=== PATIENT | female | born 1975 | race African-American/Black ===

== ENCOUNTER → 2016-08-19 | Emergency (ER) | payer SELFPAY ==
[~2016-08-19] VITALS: Ht 167.6 cm; Wt 81.6 kg
[~2016-08-19] MED LIST: BENZ100C18 PO; BIOT800T PO; CYCL10TA9 PO; DOXY100C2 PO; FERR27TA; HYDR-3714 PO; NAPR-243 PO; NAPR550T PO; POTA-51 PO; PRED20TA PO; ZOLP5TAB PO
== END | disposition home or self-care (01) ==
LOC: EDUNIT# 21:56 → ER 21:57
DX: R19.7 Diarrhea, unspecified (principal); Z53.21 Procedure and treatment not carried out due to patient leaving prior to being seen by health care provider
CPT/HCPCS: 99281

== ENCOUNTER 2016-08-20 18:02 | Emergency (ER) | payer OTHER ==
[~2016-08-20] VITALS: Ht 167.6 cm; Wt 81.6 kg
[~2016-08-20 18:02] MED LIST changes: -POTA-51 PO
--- NOTE | 2016-08-20 19:09 | ED GI ---
General Chief Complaint: Abdominal/GI Problems Stated Complaint: CRAMPS/DIARRHEA Source of Information: Patient Exam Limitations: No Limitations History of Present Illness Time Seen By Provider: 19:08 Initial Comments To ER with epigastric abdominal cramping and diarrhea for the past 3 days. No fevers or chills. No other pains. She states she's had these symptoms before and was found to be hypokalemic and required IV potassium replacement and transfusion of packed red cells about 4 years ago. Severity/Quality: Moderate, Cramping Location: Epigastric Radiation: No Radiation Activities at Onset: None Associated Symptoms: Nausea/Vomiting Allergies and Home Medications Allergies Coded Allergies: No Known Drug Allergies (Unverified , 01/20/11) Home Medications Zolpidem Tartrate 5 Mg Tablet, 5 MG PO, (Reported) Review of Systems Constitutional: see HPI, No chills, No fever EENTM: No Symptoms Reported Respiratory: See HPI Cardiovascular: See HPI Gastrointestinal: See HPI, Abdominal Pain, Denies Constipated, Diarrhea, Nausea , Denies Vomiting Genitourinary: No Symptoms Reported Musculoskeletal: no symptoms reported Skin: no symptoms reported Past Txqbvrb-Dtyxbf-Idybfv Hx Patient Social History 2nd Hand Smoke Exposure: Yes Recent Foreign Travel: No Contact w/Someone Who Travel: No Immunizations Up To Date Date of Influenza Vaccine: Feb 07, 2013 Surgeries HX Surgeries: Yes (DNC) Surgeries: Section Respiratory Hx Respiratory Disorders: No Cardiovascular Hx Cardiac Disorders: No Neurological Hx Neurological Disorders: No Reproductive System Female 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 Genitourinary Hx Genitourinary Disorders: No Gastrointestinal Hx Gastrointestinal Disorders: No Musculoskeletal Hx Musculoskeletal Disorders: No Endocrine Hx Endocrine Disorders: No HEENT HX ENT Disorders: No HEENT Disorders: Epiglottis Cancer Hx Cancer: No Psychosocial Hx Psychiatric Problems: No Integumentary HX Skin/Integumentary Disorder: No Blood Transfusions Hx Blood Disorders: No Family Medical History Significant Family History: No Pertinent Family Hx Physical Exam Vital Signs VS - Last 72 Hours, by Label 08/20/16 18:38 Temp 99.0 Pulse 86 Resp 18 B/P (MAP) 143/98 Pulse Ox 98 Capillary Refill : General Appearance: WD/WN, no apparent distress HEENT: PERRL/EOMI, normal ENT inspection Neck: non-tender, full range of motion Respiratory: no respiratory distress, no accessory muscle use Gastrointestinal: normal bowel sounds, non tender, soft Extremities: normal range of motion, non-tender Neurologic/Psychiatric: alert, normal mood/affect, oriented x 3 Skin: normal color, warm/dry Progress/Results/Core Measures Results/Orders Lab Results Laboratory Tests Test 08/20/16 18:45 Range/Units White Blood Count 10.7 4.3-11.0 10^3/uL Red Blood Count 4.64 4.35-5.85 10^6/uL Hemoglobin 13.2 11.5-16.0 G/DL Hematocrit 36 35-52 % Mean Corpuscular Volume 78 L 80-99 FL Mean Corpuscular Hemoglobin 28 25-34 PG Mean Corpuscular Hemoglobin Concent 36 32-36 G/DL Red Cell Distribution Width 13.8 10.0-14.5 % Platelet Count 289 130-400 10^3/uL Mean Platelet Volume 10.2 7.4-10.4 FL Neutrophils (%) (Auto) 67 42-75 % Lymphocytes (%) (Auto) 21 12-44 % Monocytes (%) (Auto) 10 0-12 % Eosinophils (%) (Auto) 1 0-10 % Basophils (%) (Auto) 1 0-10 % Neutrophils # (Auto) 7.2 1.8-7.8 X 10^3 Lymphocytes # (Auto) 2.3 1.0-4.0 X 10^3 Monocytes # (Auto) 1.0 0.0-1.0 X 10^3 Eosinophils # (Auto) 0.1 0.0-0.3 10^3/uL Basophils # (Auto) 0.1 0.0-0.1 10^3/uL Erythrocyte Sedimentation Rate 17 0-20 MM/HR Sodium Level 139 135-145 MMOL/L Potassium Level 3.1 L 3.6-5.0 MMOL/L Chloride Level 108 H 98-107 MMOL/L Carbon Dioxide Level 22 21-32 MMOL/L Anion Gap 9 5-14 MMOL/L Blood Urea Nitrogen 10 7-18 MG/DL Creatinine 0.72 0.60-1.30 MG/DL Estimat Glomerular Filtration Rate > 60 BUN/Creatinine Ratio 14 Glucose Level 91 70-105 MG/DL Calcium Level 9.1 8.5-10.1 MG/DL Total Bilirubin 0.3 0.1-1.0 MG/DL Aspartate Amino Transf (AST/SGOT) 10 5-34 U/L Alanine Aminotransferase (ALT/SGPT) 9 0-55 U/L Alkaline Phosphatase 66 40-136 U/L C-Reactive Protein High Sensitivity 0.67 H 0.00-0.50 MG/DL Total Protein 7.8 6.4-8.2 G/DL Albumin 4.2 3.2-4.5 G/DL My Orders Orders - CHERYL GONG APRN Ua Culture If Indicated (08/20/16 19:07) Cbc With Automated Diff (08/20/16 19:07) Erythrocyte Sedimentation Rate (08/20/16 19:07) Comprehensive Metabolic Panel (08/20/16 19:07) Hs C Reactive Protein (08/20/16 19:07) Saline Lock/Iv-Start (08/20/16 19:07) Urine Bedside (08/20/16 19:07) Potassium Chloride (Tablet) (Klor Con Ta (08/20/16 19:45) Vital Signs/I&O Vital Sign - Last 12Hours 08/20/16 18:38 Temp 99.0 Pulse 86 Resp 18 B/P (MAP) 143/98 Pulse Ox 98 Departure Impression Impression: Primary Impression: Abdominal cramping Additional Impression: Diarrhea Disposition: 01 HOME, SELF-CARE Condition: Stable Departure-Patient Inst. Decision time for Depature: 19:54 Referrals: [facility] (PCP/Family) Primary Care Physician Patient Instructions: Diarrhea and Traveler's Diarrhea, Adult (DC) Add. Discharge Instructions: 1. Bduc-pnl-joilvje Imodium as directed 2. Plenty of fluids such as Gatorade 3. Medication as directed 4. Follow-up with regular doctor later this week for recheck All discharge instructions reviewed with patient and/or family. Voiced understanding. Scripts Potassium Chloride (Potassium Chloride) 20 Meq Tablet.er 20 MEQ PO DAILY, #3 TAB Prov: CHERYL GONG APRN 08/20/16 CHERYL GONG APRN August 20, 2016 19:09
[2016-08-20 19:21] LABS: BASOPHILS # (AUTO) 0.1 10^3/uL (0.0-0.1); BASOPHILS % (AUTO) 1 % (0-10); EOSINOPHILS # (AUTO) 0.1 10^3/uL (0.0-0.3); EOSINOPHILS % (AUTO) 1 % (0-10); LYMPHOCYTES # (AUTO) 2.3 X 10^3 (1.0-4.0); LYMPHOCYTES % (AUTO) 21 % (12-44); MEAN CORPUSCULAR HEMOGLOBIN 28 PG (25-34); MEAN CORPUSCULAR HGB CONC 36 G/DL (32-36); MEAN CORPUSCULAR VOLUME 78 FL (80-99); MEAN PLATELET VOLUME 10.2 FL (7.4-10.4); MONOCYTES % (AUTO) 10 % (0-12); NEUTROPHILS # (AUTO) 7.2 X 10^3 (1.8-7.8); NEUTROPHILS % (AUTO) 67 % (42-75); PLATELET COUNT 289 10^3/uL (130-400); RED BLOOD COUNT 4.64 10^6/uL (4.35-5.85); RED CELL DISTRIBUTION WIDTH 13.8 % (10.0-14.5); WHITE BLOOD COUNT 10.7 10^3/uL (4.3-11.0)
[2016-08-20 19:26] LABS: ALANINE AMINOTRANSFERASE 9 U/L (0-55); ALBUMIN 4.2 G/DL (3.2-4.5); ANION GAP 9 MMOL/L (5-14); ASPARTATE AMINO TRANSFERASE 10 U/L (5-34); BILIRUBIN,TOTAL 0.3 MG/DL (0.1-1.0); BLOOD UREA NITROGEN 10 MG/DL (7-18); BUN/CREATININE RATIO 14; CALCIUM 9.1 MG/DL (8.5-10.1); CARBON DIOXIDE 22 MMOL/L (21-32); CHLORIDE 108 MMOL/L (98-107); CREATININE SERUM 0.72 MG/DL (0.60-1.30); GFR ESTIMATED > 60; GLUCOSE 91 MG/DL (70-105); POTASSIUM 3.1 MMOL/L (3.6-5.0); SODIUM 139 MMOL/L (135-145); TOTAL PROTEIN 7.8 G/DL (6.4-8.2); hs C REACTIVE PROTEIN 0.67 MG/DL (0.00-0.50)
[2016-08-20] MEDS ORDERED: KCL 10 MEQ TAB (MICRO K) PO ONE (19:45)
[2016-08-20 19:49] LABS: ERYTHROCYTE SEDIMENTATION RATE 17 MM/HR (0-20)
[2016-08-20] MEDS ORDERED: POTA-51 PO (19:59)
[2016-08-20 20:44] VITALS: BP 120/83
== END 2016-08-20 20:44 | disposition home or self-care (01) ==
LOC: EDUNIT# 18:02 → ER 18:03
DX: R10.30 Lower abdominal pain, unspecified (principal); R19.7 Diarrhea, unspecified
CPT/HCPCS: 36415; 80053; 85025; 85652; 86141

== ENCOUNTER 2016-12-17 21:16 | Emergency (ER) | payer OTHER ==
[~2016-12-17 21:16] MED LIST changes: +POTA-51 PO
--- OUTSIDE RECORDS SUMMARY | 2016-12-17 21:21 | XMS REPORT ---
Author Author KAI CELAYA [facility] Address [address] [place] [address] Care Team Providers Care Identification Officer Name Role Phone KAI CELAYA Unavailable PROBLEMS Type Condition ICD9-CM Code [id number] Code Onset Dates Condition Status SNOMED Code Problem Irregular menstrual bleeding N92.6 Active 59403150 Problem Hair loss L65.9 Active 054552940 Problem Primary insomnia F51.01 Active 6633705 Problem Episodic tension-type headache, not intractable G44.219 Active 388706890 ALLERGIES Substance Reaction Event Type Date Status N.K.D.A. Unknown Non Drug Allergy Mar, Unknown SOCIAL HISTORY No smoking Hx information available PLAN OF CARE Activity Details Follow Up 3 Months or pending lab Reason:Insomnia VITAL SIGNS Height 66 in 2016-04-23 Weight 177.3 lbs 2016-04-23 Temperature 98.4 degrees Fahrenheit 2016-04-23 Heart Rate 84 bpm 2016-04-23 Respiratory Rate 20 2016-04-23 BMI 28.61 kg/m2 2016-04-23 Blood pressure systolic 124 mmHg 2016-04-23 Blood pressure diastolic 78 mmHg 2016-04-23 MEDICATIONS Medication Instructions Dosage Frequency Start Date End Date Duration Status Depo-Provera 150 MG/ML Intramuscular every 3 months 150mg IM Feb, Jan, 12 months Active Ambien 5 mg Orally Once a day 1 tablet at bedtime 24h Mar, 28 days Active RESULTS Name Result Date Reference Range ESTRADIOL 2016-04-23 Estradiol <5.0 TSH 2016-04-23 TSH 0.776 0.450-4.500 CBC 2016-04-23 WBC 10.0 3.4-10.8 RBC 5.17 3.77-5.28 Hemoglobin 13.7 11.1-15.9 Hematocrit 40.8 34.0-46.6 MCV 79 79-97 MCH 26.5 26.6-33.0 MCHC 33.6 31.5-35.7 RDW 16.3 12.3-15.4 Platelets 343 150-379 Neutrophils 72 Lymphs 20 Monocytes 5 Eos 2 Basos 1 Neutrophils (Absolute) 7.3 1.4-7.0 Lymphs (Absolute) 2.0 0.7-3.1 Monocytes(Absolute) 0.5 0.1-0.9 Eos (Absolute) 0.2 0.0-0.4 Baso (Absolute) 0.1 0.0-0.2 Immature Granulocytes 0 Immature Grans (Abs) 0.0 0.0-0.1 VITAMIN D, 25-H 2016-04-23 Vitamin D, 25-Hydroxy 13.7 30.0-100.0 PROCEDURES Procedure Date Ordered Related Diagnosis Body Site ASSAY THYROID STIM HORMONE Apr 23, 2016 ASSAY OF ESTRADIOL Apr 23, 2016 COMPLETE CBC W/AUTO DIFF WBC Apr 23, 2016 ASSAY OF VITAMIN D Apr 23, 2016 VENIPUNCT, ROUTINE* Apr 23, 2016 Office Visit, Est Pt., Level 4 Apr 23, 2016 IMMUNIZATIONS No Known Immunizations
--- OUTSIDE RECORDS SUMMARY | 2016-12-17 21:21 | XMS REPORT ---
Author Author KAI CELAYA [facility] Address [address] [place] [address] Care Team Providers Care Lumber Sticker Name Role Phone KAI CELAYA Unavailable PROBLEMS Type Condition ICD9-CM Code [id number] Code Onset Dates Condition Status SNOMED Code Problem Irregular menstrual bleeding N92.6 Active 29839030 Problem Hair loss L65.9 Active 159900626 Problem Primary insomnia F51.01 Active 1291255 Problem Episodic tension-type headache, not intractable G44.219 Active 289614754 ALLERGIES No Known Allergies SOCIAL HISTORY No smoking Hx information available PLAN OF CARE VITAL SIGNS MEDICATIONS Medication Instructions Dosage Frequency Start Date End Date Duration Status Cholecalciferol 5000 UNIT Orally once weekly for 12 weeks then once completed take 4,000 units daily OTC 1 tablet Mar, Active RESULTS No Results PROCEDURES No Known procedures IMMUNIZATIONS No Known Immunizations
--- OUTSIDE RECORDS SUMMARY | 2016-12-17 21:21 | XMS REPORT ---
Author Author JENNIFER Harper [facility] Address Unknown Care Team Providers Care Professional Architect Name Role Phone JENNIFER Harper Unavailable PROBLEMS Type Condition ICD9-CM Code [id number] Code Onset Dates Condition Status SNOMED Code Problem Irregular menstrual bleeding N92.6 Active 19380972 Problem Hair loss L65.9 Active 363468010 Problem Primary insomnia F51.01 Active 4012119 Problem Episodic tension-type headache, not intractable G44.219 Active 303337090 ALLERGIES Substance Reaction Event Type Date Status N.K.D.A. Unknown Non Drug Allergy Feb, Unknown SOCIAL HISTORY No smoking Hx information available PLAN OF CARE Activity Details Follow Up prn Reason:filling VITAL SIGNS Height 66 in 2016-03-11 Blood pressure systolic 147 mmHg 2016-03-11 Blood pressure diastolic 86 mmHg 2016-03-11 MEDICATIONS Medication Instructions Dosage Frequency Start Date End Date Duration Status Amitriptyline HCl 50mg Orally Once a day at hs 1/2 tablet daily x 7 days then 1 tablet 14 Nov, 2015 Active Depo-Provera 150 MG/ML Intramuscular every 3 months 150mg IM Feb, Jan, 12 months Active RESULTS No Results PROCEDURES Procedure Date Ordered Related Diagnosis Body Site LTD ORAL EVALUATION - PROBLEM FOCUS Mar 11, 2016 INTRAORL-PERIAPICAL 1 FILM [id number] Mar 11, 2016 IMMUNIZATIONS No Known Immunizations
== END 2016-12-17 21:51 | disposition left against medical advice (07) ==
LOC: EDUNIT# 21:16 → ER 21:17
DX: S80.252A Superficial foreign body, left knee, initial encounter (principal); W25.XXXA Contact with sharp glass, initial encounter

== ENCOUNTER 2017-12-09 20:18 | Emergency (ER) | payer SELFPAY ==
[~2017-12-09] VITALS: Ht 167.6 cm; Wt 79.4 kg
[~2017-12-09 20:18] MED LIST changes: +NAPR-1070 PO; -NAPR550T PO
[2017-12-09] MEDS ORDERED: NITROGLYCERIN 0.4 MG SL TABS BTL 25'S SL PRN (20:30)
[2017-12-09] MEDS ORDERED: ASPIRIN 81 MG CHEW (CHILDREN'S ASA) PO ONE (20:30)
[2017-12-09 20:39] LABS: BASOPHILS % (AUTO) 0 % (0-10); EOSINOPHILS # (AUTO) 0.2 10^3/uL (0.0-0.3); EOSINOPHILS % (AUTO) 1 % (0-10); HEMATOCRIT 37 % (35-52); HEMOGLOBIN 13.6 G/DL (11.5-16.0); LYMPHOCYTES # (AUTO) 3.5 X 10^3 (1.0-4.0); LYMPHOCYTES % (AUTO) 25 % (12-44); MEAN CORPUSCULAR HEMOGLOBIN 28 PG (25-34); MEAN CORPUSCULAR HGB CONC 37 G/DL (32-36); MEAN CORPUSCULAR VOLUME 74 FL (80-99); MEAN PLATELET VOLUME 9.9 FL (7.4-10.4); MONOCYTES # (AUTO) 0.9 X 10^3 (0.0-1.0); MONOCYTES % (AUTO) 7 % (0-12); NEUTROPHILS # (AUTO) 9.2 X 10^3 (1.8-7.8); NEUTROPHILS % (AUTO) 66 % (42-75); PLATELET COUNT 355 10^3/uL (130-400); RED BLOOD COUNT 4.95 10^6/uL (4.35-5.85); RED CELL DISTRIBUTION WIDTH 16.2 % (10.0-14.5); WHITE BLOOD COUNT 13.9 10^3/uL (4.3-11.0)
[2017-12-09 20:51] LABS: PROTHROMBIN TIME PATIENT 13.1 SEC (12.2-14.7)
[2017-12-09 21:03] LABS: ALANINE AMINOTRANSFERASE 13 U/L (0-55); ALBUMIN 4.5 GM/DL (3.2-4.5); ALKALINE PHOSPHATASE 60 U/L (40-136); AMYLASE 66 U/L (25-125); BILIRUBIN,TOTAL 0.3 MG/DL (0.1-1.0); BUN/CREATININE RATIO 10; CALCIUM 9.4 MG/DL (8.5-10.1); CARBON DIOXIDE 20 MMOL/L (21-32); CHLORIDE 106 MMOL/L (98-107); CREATINE KINASE 46 U/L (29-168); GFR ESTIMATED > 60; GLUCOSE 87 MG/DL (70-105); LIPASE 16 U/L (8-78); MAGNESIUM 2.1 MG/DL (1.8-2.4); POTASSIUM 3.2 MMOL/L (3.6-5.0); SODIUM 137 MMOL/L (135-145); TOTAL PROTEIN 8.1 GM/DL (6.4-8.2)
[2017-12-09 21:11] LABS: CREATINE KINASE MB 0.6 NG/ML (<6.6)
--- NOTE | 2017-12-09 21:19 | Diagnostic Imaging Report ---
EXAMINATION: Chest radiograph, portable AP view. DATE: December 09, 2017 at 2039 hours. INDICATION: 42-year-old female, chest pain. COMPARISON: February 07, 2013. FINDINGS: Heart size and mediastinal contours are unremarkable. There is no identified pneumothorax. There is no large pleural effusion. There is no identified focal airspace consolidation. IMPRESSION: No identified acute cardiopulmonary abnormality. Dictated by: Dictated on workstation # [id number]
--- NOTE | 2017-12-09 21:28 | ED Chest Pain ---
General Chief Complaint: Chest Pain Stated Complaint: CHEST PAIN Nursing Triage Note: PT PRESENTS TO ER WITH COMPLAINT OF CHEST PAIN FOR THE LAST TWO DATS. STATES SHE THOUGHT IT COULD BE GAS. STATES IT GOES ACROSS HER CHEST AND UNDER HER BREAST. Nursing Sepsis Screen: No Definite Risk Source: patient History of Present Illness Date Seen by Provider: Dec 09, 2017 Time Seen by Provider: 20:25 Initial Comments PT ARRIVES VIA POV FROM HOME PT STATES "I KEEP GETTING THESE CHEST PAINS" STATES "LAST NIGHT IT WAS REALLY BAD" STATES SHE STARTED HAVING PAINS ON FRIDAY NIGHT STATES PAIN COMES AND GOES AND IS NOT PRESENT NOW PT STATES TODAY THAT PAIN STARTED AT 10 AM, LASTED 20 MINUTES, RETURNED AT 1300 AND LASTED 20 MINUTES, AND RETURNED AT 1900 AND LASTED 10-15 MINUTES PAIN IS UNDER BOTH BREASTS AND ON TOP OF BOTH BREASTS AND IS VERY TENDER NOTHING WORSENS PAIN, BUT IS IMPROVED WITH POSITION CHANGES + SHORTNESS OF BREATH LAST PM WITH THE PAIN AND THEN FELT WEAK AFTERWARDS HAD SWEATS LAST PM, NOT TODAY NO NAUSEA/VOMITING NO SWELLING IN LEGS/ FEET OR PAIN IN CALVES. NO RECENT PROLONGED TRAVEL OR SITTING NO COUGH NO FEVER NO RECENT ILLNESS NO BACK PAIN NO HISTORY OF SIMILAR LMP 2 MONTHS AGO--PERIODS IRREGULAR. S/P BTL PCP: KATELYN, PARAM CELAYA Allergies and Home Medications Allergies Coded Allergies: No Known Drug Allergies (Unverified , 01/20/11) Home Medications Potassium Chloride 20 Meq Tablet.er, 20 MEQ PO DAILY Prescribed by: CHERYL GONG on 08/20/161958 Patient Home Medication List Home Medication List Reviewed: Yes Review of Systems Review of Systems Constitutional: see HPI, diaphoresis; No dizziness, No fever, No malaise, No weakness EENTM: No Symptoms Reported Respiratory: See HPI; Denies Orthopnea; Shortness of Air Cardiovascular: See HPI, Chest Pain; Denies Edema, Denies Irregular Heart Rate , Denies Lightheadedness, Denies Palpitations, Denies Syncope Gastrointestinal: No Symptoms Reported; Denies Abdominal Pain, Denies Nausea, Denies Vomiting Genitourinary: No Symptoms Reported Musculoskeletal: see HPI; No back pain, No neck pain Skin: no symptoms reported Psychiatric/Neurological: No Symptoms Reported Endocrine: No Symptoms Reported Past Pymitfr-Kqfitk-Sdvuhz Hx Patient Social History Alcohol Use: Occasionally Uses Recreational Drug Use: No Smoking Status: Never a Smoker 2nd Hand Smoke Exposure: Yes Recent Foreign Travel: No Contact w/Someone Who Travel: No Recent Infectious Disease Expo: No Immunizations Up To Date Date of Influenza Vaccine: Feb 07, 2013 Past Medical History Surgeries: Yes ( X 3; D&C) Section, Tubal Ligation Respiratory: No Cardiac: No Neurological: No Female Reproductive Disorders: Menstrual Problems (IRREGULAR PERIODS) 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 oz. 79.248423mc; BMI Method:Stated General Appearance: No Apparent Distress, WD/WN HEENT: PERRL/EOMI Neck: Full Range of Motion, Normal Inspection, Non Tender, Supple; No Carotid Bruit, No JVD Respiratory: Normal Breath Sounds, No Accessory Muscle Use, No Respiratory Distress, Other (MILD DIFFUSE CHEST WALL TENDERNESS) Cardiovascular: Regular Rate, Rhythm, No Edema, No JVD, No Murmur, Normal Peripheral Pulses Gastrointestinal: Normal Bowel Sounds, No Organomegaly, No Pulsatile Mass, Non Tender, Soft Extremity: Normal Capillary Refill, Normal Inspection, Normal Range of Motion, Non Tender, No Calf Tenderness, No Pedal Edema Neurologic/Psychiatric: Alert, Oriented x3, No Motor/Sensory Deficits, Normal Mood/Affect, exhibit builder II-XII Norm as Tested Skin: Normal Color, Warm/Dry; No Rash Progress/Results/Core Measures Results/Orders Lab Results Laboratory Tests Test 12/09/17 20:30 Range/Units White Blood Count 13.9 H 4.3-11.0 10^3/uL Red Blood Count 4.95 4.35-5.85 10^6/uL Hemoglobin 13.6 11.5-16.0 G/DL Hematocrit 37 35-52 % Mean Corpuscular Volume 74 L 80-99 FL Mean Corpuscular Hemoglobin 28 25-34 PG Mean Corpuscular Hemoglobin Concent 37 H 32-36 G/DL Red Cell Distribution Width 16.2 H 10.0-14.5 % Platelet Count 355 130-400 10^3/uL Mean Platelet Volume 9.9 7.4-10.4 FL Neutrophils (%) (Auto) 66 42-75 % Lymphocytes (%) (Auto) 25 12-44 % Monocytes (%) (Auto) 7 0-12 % Eosinophils (%) (Auto) 1 0-10 % Basophils (%) (Auto) 0 0-10 % Neutrophils # (Auto) 9.2 H 1.8-7.8 X 10^3 Lymphocytes # (Auto) 3.5 1.0-4.0 X 10^3 Monocytes # (Auto) 0.9 0.0-1.0 X 10^3 Eosinophils # (Auto) 0.2 0.0-0.3 10^3/uL Basophils # (Auto) 0.0 0.0-0.1 10^3/uL Prothrombin Time 13.1 12.2-14.7 SEC INR Comment 1.0 0.8-1.4 Activated Partial Thromboplast Time 29 24-35 SEC Sodium Level 137 135-145 MMOL/L Potassium Level 3.2 L 3.6-5.0 MMOL/L Chloride Level 106 98-107 MMOL/L Carbon Dioxide Level 20 L 21-32 MMOL/L Anion Gap 11 5-14 MMOL/L Blood Urea Nitrogen 7 7-18 MG/DL Creatinine 0.70 0.60-1.30 MG/DL Estimat Glomerular Filtration Rate > 60 BUN/Creatinine Ratio 10 Glucose Level 87 70-105 MG/DL Calcium Level 9.4 8.5-10.1 MG/DL Corrected Calcium 9.0 8.5-10.1 MG/DL Magnesium Level 2.1 1.8-2.4 MG/DL Total Bilirubin 0.3 0.1-1.0 MG/DL Aspartate Amino Transf (AST/SGOT) 15 5-34 U/L Alanine Aminotransferase (ALT/SGPT) 13 0-55 U/L Alkaline Phosphatase 60 40-136 U/L Total Creatine Kinase 46 29-168 U/L Creatine Kinase MB 0.6 <6.6 NG/ML Myoglobin 17.0 10.0-92.0 NG/ML Troponin I < 0.30 <0.30 NG/ML B-Type Natriuretic Peptide < 10.0 <100.0 PG/ML Total Protein 8.1 6.4-8.2 GM/DL Albumin 4.5 3.2-4.5 GM/DL Amylase Level 66 25-125 U/L Lipase 16 8-78 U/L Serum Test, Qualitative NEGATIVE NEGATIVE My Orders Orders - DOLORESJAMES Monae DO Cbc With Automated Diff (12/09/17 20:) Magnesium (12/09/17 20:27) Chest 1 View, Ap/Pa Only (12/09/17 20:27) Ekg Tracing (12/09/17 20:) Cardiac Profile 1 (12/09/17 20:) Comprehensive Metabolic Panel (12/09/17 20:) Myoglobin Serum (12/09/17 20:) Protime With Inr (12/09/17 20:) Partial Thromboplastin Time (12/09/17:) O2 (12/09/17:) Monitor-Rhythm Ecg Trace Only (12/09/17:) Aspirin Chewable Tablet (Baby Aspirin Ch (12/09/17 20:30) Nitroglycerin 0.4 Mg Btl 25's (Nitrostat (12/09/17 20:30) Saline Lock/Iv-Start (12/09/17 20:27) Creatine Kinase (12/09/17 20:27) Creatine Kinase Mb (12/09/17 20:27) Lipase (12/09/17 20:27) Amylase (12/09/17 20:) BNP (12/09/17 20:27) Hcg,Qualitative Serum (12/09/17 20:) Ketorolac Injection (Toradol Injection) (12/09/17 21:45) Iv Push Public [facility] Ed (12/09/17 ) Medications Given in ED Vital Signs/I&O Blood Pressure Mean: 114 Progress Progress Note : Progress Note NO PAIN OR ANY OTHER SYMPTOMS DURING ENTIRE ER STAY Initial ECG Impression Date: Dec 09, 2017 Initial ECG Impression Time: 20:22 Initial ECG Rate: 93 Initial ECG Rhythm: Normal Sinus Diagnostic Imaging Comments CXR--NO ACUTE PROCESS, PER RADIOLOGIST REPORT @ 2126 Reviewed: Reviewed by Me Departure Communication (Admissions) 2129--SPOKE WITH DR. WILKERSON, SHE WILL ARRANGE FOR OUTPATIENT STRESS TEST THIS WEEK. THEY WILL CALL PT TOMORROW TO ARRANGE FOLLOW AND SCHEDULE STRESS TEST. Impression Primary Impression: Chest pain Disposition: HOME, SELF-CARE Condition: Stable Departure-Patient Inst. Referrals: [facility] (PCP/Family) Primary Care Physician Patient Instructions: Chest Pain (DC) Add. Discharge Instructions: HOME, REST AVOID ANY STRENUOUS ACTIVITIES TAKE 324 MG ENTERIC COATED ASPIRIN DAILY FOLLOW UP WITH [facility] TOMORROW TO ARRANGE FOR OUTPATIENT STRESS TEST RETURN TO ER IF SYMPTOMS WORSEN All discharge instructions reviewed with patient and/or family. Voiced understanding. Work/School Note: Work Release Form Date Seen in the Emergency Department: Dec 09, 2017 Return to Work: Dec 10, 2017 JAMES BERNAL DO Dec 09, 2017 21:27
[2017-12-09] MEDS ORDERED: KETOROLAC 30 MG/ML VIAL IVP ONE (21:45)
[2017-12-09 21:53] VITALS: BP 115/83
== END 2017-12-09 21:53 | disposition home or self-care (01) ==
LOC: EDUNIT# 20:18 → ER 20:20
DX: R07.9 Chest pain, unspecified (principal); Z77.22 Contact with and (suspected) exposure to environmental tobacco smoke (acute) (chronic); Z98.890 Other specified postprocedural states; Z98.51 Tubal ligation status
CPT/HCPCS: 36415; 71045; 80053; 82150; 82550; 82553; 83690; 83735; 83874; 83880; 84484; 84703; 85025; 85610; 85730; 93005; 93041; 96374

== ENCOUNTER 2019-06-28 14:59 | Emergency (ER) | payer OTHER ==
[~2019-06-28] VITALS: Ht 167 cm; Wt 81.0 kg
[2019-06-28] MEDS ORDERED: ASPIRIN 81 MG CHEW (CHILDREN'S ASA) PO ONE (15:15)
[2019-06-28 15:23] LABS: BASOPHILS % (AUTO) 0 % (0-10); EOSINOPHILS # (AUTO) 0.2 10^3/uL (0.0-0.3); EOSINOPHILS % (AUTO) 1 % (0-10); HEMATOCRIT 31 % (35-52); HEMOGLOBIN 10.4 G/DL (11.5-16.0); LYMPHOCYTES # (AUTO) 2.4 X 10^3 (1.0-4.0); LYMPHOCYTES % (AUTO) 23 % (12-44); MEAN CORPUSCULAR HEMOGLOBIN 22 PG (25-34); MEAN CORPUSCULAR HGB CONC 34 G/DL (32-36); MEAN CORPUSCULAR VOLUME 66 FL (80-99); MEAN PLATELET VOLUME 10.4 FL (7.4-10.4); MONOCYTES # (AUTO) 0.7 X 10^3 (0.0-1.0); MONOCYTES % (AUTO) 7 % (0-12); NEUTROPHILS # (AUTO) 7.2 X 10^3 (1.8-7.8); NEUTROPHILS % (AUTO) 69 % (42-75); PLATELET COUNT 452 10^3/uL (130-400); RED CELL DISTRIBUTION WIDTH 21.2 % (10.0-14.5); WHITE BLOOD COUNT 10.5 10^3/uL (4.3-11.0)
[2019-06-28 15:35] LABS: PROTHROMBIN TIME PATIENT 13.4 SEC (12.2-14.7)
--- NOTE | 2019-06-28 15:41 | Diagnostic Imaging Report ---
PATIENT HISTORY: Chest pain. TECHNIQUE: Single frontal view of the chest. COMPARISON: 12/09/2017 FINDINGS: The lung volumes are normal. No focal consolidation is seen. No large pleural effusion or pneumothorax is seen. The cardiomediastinal silhouette is normal in size and contour. No acute osseous abnormality is seen. IMPRESSION: No acute pulmonary abnormality seen. Dictated by: Dictated on workstation # [id number]
[2019-06-28 15:44] LABS: ALANINE AMINOTRANSFERASE 12 U/L (0-55); ALBUMIN 4.4 GM/DL (3.2-4.5); ALKALINE PHOSPHATASE 62 U/L (40-136); BILIRUBIN,TOTAL 0.4 MG/DL (0.1-1.0); BUN/CREATININE RATIO 12; CALCIUM 8.8 MG/DL (8.5-10.1); CARBON DIOXIDE 21 MMOL/L (21-32); CHLORIDE 107 MMOL/L (98-107); CREATININE SERUM 0.74 MG/DL (0.60-1.30); GFR ESTIMATED > 60; GLUCOSE 102 MG/DL (70-105); MAGNESIUM 1.7 MG/DL (1.6-2.4); POTASSIUM 3.2 MMOL/L (3.6-5.0); SODIUM 138 MMOL/L (135-145); TOTAL PROTEIN 7.7 GM/DL (6.4-8.2)
--- NOTE | 2019-06-28 15:59 | ED Chest Pain ---
General Chief Complaint: Chest Pain Stated Complaint: CHEST PAIN Nursing Triage Note: PT STATES AT BEDTIME SHE HAS BEEN HAVING CHEST PAIN AND FEELING LIKE SHE IS PASSING OUT FOR ABOUT A WEEK, DENIES CP NOW. STATES ANXIETY WHEN HER HEART RATE GETS DOWN TO 60 BECAUSE SHE BELIEVES SHE COULD HAVE A CARDIAC EVENT IF IT GETS THAT LOW. Nursing Sepsis Screen: No Definite Risk History of Present Illness Date Seen by Provider: Jun 28, 2019 Time Seen by Provider: 15:07 Initial Comments 43-year-old -Citizen Of [place] female presents with left sided anterior chest wall pain that began approximately 6 hours ago and lasted for 10 minutes then resolved after she palpated the area. She denies a previous cardiac history, she had no nausea or vomiting associated with the pain. She was able to sleep without difficulty last night. She works at [employer] and has some anxiety about COVID. Timing/Duration: resolved prior to arrival, gone now Severity/Quality: mild Location: substernal Radiation: no radiation ASA po RN PROVIDER RELATIONS: No NTG SL RN PROVIDER RELATIONS: No Associated Symptoms: denies symptoms Allergies and Home Medications Allergies Coded Allergies: No Known Drug Allergies (Unverified , 01/20/11) Home Medications Potassium Chloride 20 Meq Tablet.er, 20 MEQ PO DAILY Prescribed by: CHERYL GONG on 08/20/161958 Patient Home Medication List Home Medication List Reviewed: Yes Review of Systems Review of Systems Constitutional: no symptoms reported, see HPI Cardiovascular: See HPI, Chest Pain Gastrointestinal: See HPI; Denies Abdominal Pain, Denies Nausea, Denies Vomiting All Other Systems Reviewed Negative Unless Noted: Yes Past Fqpjmmo-Ulzfok-Yqzzfg Hx Past Med/Social Hx: Reviewed Nursing Past Med/Soc Hx Patient Social History Alcohol Use: Occasionally Uses Alcohol Beverage of Choice: Wine Recreational Drug Use: No Smoking Status: Never a Smoker 2nd Hand Smoke Exposure: Yes Recent Foreign Travel: No Contact w/Someone Who Travel: No Recent Infectious Disease Expo: No Recent Hopitalizations: No Physical Abuse: No Sexual Abuse: No Mistreated: No Fear: No Immunizations Up To Date Date of Influenza Vaccine: Feb 07, 2013 Seasonal Allergies Seasonal Allergies: Yes Past Medical History Surgeries: Yes ( X 3; D&C) Section, Tubal Ligation Respiratory: No Cardiac: No Neurological: No : No Female Reproductive Disorders: Menstrual Problems [employer]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 oz. [id number]; 29.00 BMI Method:Stated General Appearance: No Apparent Distress, WD/WN HEENT: PERRL/EOMI, TMs Normal, Normal ENT Inspection, Pharynx Normal Neck: Full Range of Motion, Normal Inspection, Non Tender Respiratory: Chest Non Tender, Lungs Clear, Normal Breath Sounds Cardiovascular: Regular Rate, Rhythm, No Edema, No Murmur, Normal Peripheral Pulses Gastrointestinal: Normal Bowel Sounds, Non Tender, Soft Extremity: Normal Capillary Refill, Normal Inspection, Normal Range of Motion, No Pedal Edema Neurologic/Psychiatric: Alert, Oriented x3, No Motor/Sensory Deficits, Normal Mood/Affect Skin: Normal Color, Warm/Dry Progress/Results/Core Measures Results/Orders Lab Results Laboratory Tests Test 06/28/19 15:05 Range/Units White Blood Count 10.5 4.3-11.0 10^3/uL Red Blood Count 4.68 4.35-5.85 10^6/uL Hemoglobin 10.4 L 11.5-16.0 G/DL Hematocrit 31 L 35-52 % Mean Corpuscular Volume 66 L 80-99 FL Mean Corpuscular Hemoglobin 22 L 25-34 PG Mean Corpuscular Hemoglobin Concent 34 32-36 G/DL Red Cell Distribution Width 21.2 H 10.0-14.5 % Platelet Count 452 H 130-400 10^3/uL Mean Platelet Volume 10.4 7.4-10.4 FL Neutrophils (%) (Auto) 69 42-75 % Lymphocytes (%) (Auto) 23 12-44 % Monocytes (%) (Auto) 7 0-12 % Eosinophils (%) (Auto) 1 0-10 % Basophils (%) (Auto) 0 0-10 % Neutrophils # (Auto) 7.2 1.8-7.8 X 10^3 Lymphocytes # (Auto) 2.4 1.0-4.0 X 10^3 Monocytes # (Auto) 0.7 0.0-1.0 X 10^3 Eosinophils # (Auto) 0.2 0.0-0.3 10^3/uL Basophils # (Auto) 0.0 0.0-0.1 10^3/uL Prothrombin Time 13.4 12.2-14.7 SEC INR Comment 1.0 0.8-1.4 Activated Partial Thromboplast Time 31 24-35 SEC Sodium Level 138 135-145 MMOL/L Potassium Level 3.2 L 3.6-5.0 MMOL/L Chloride Level 107 98-107 MMOL/L Carbon Dioxide Level 21 21-32 MMOL/L Anion Gap 10 5-14 MMOL/L Blood Urea Nitrogen 9 7-18 MG/DL Creatinine 0.74 0.60-1.30 MG/DL Estimat Glomerular Filtration Rate > 60 BUN/Creatinine Ratio 12 Glucose Level 102 70-105 MG/DL Calcium Level 8.8 8.5-10.1 MG/DL Corrected Calcium 8.5 8.5-10.1 MG/DL Magnesium Level 1.7 1.6-2.4 MG/DL Total Bilirubin 0.4 0.1-1.0 MG/DL Aspartate Amino Transf (AST/SGOT) 14 5-34 U/L Alanine Aminotransferase (ALT/SGPT) 12 0-55 U/L Alkaline Phosphatase 62 40-136 U/L Myoglobin 22.8 10.0-92.0 NG/ML Troponin I < 0.028 <0.028 NG/ML Total Protein 7.7 6.4-8.2 GM/DL Albumin 4.4 3.2-4.5 GM/DL My Orders Orders - NIMESH HOWE HEADHUNTER Cbc With Automated Diff (06/28/19 15:11) Magnesium (06/28/19 15:11) Chest 1 View, Ap/Pa Only (06/28/19 15:11) Ekg Tracing (06/28/19 15:11) Comprehensive Metabolic Panel (06/28/19 15:11) Myoglobin Serum (06/28/19 15:11) Protime With Inr (06/28/19 15:11) Partial Thromboplastin Time (06/28/19 15:11) O2 (06/28/19 15:11) Monitor-Rhythm Ecg Trace Only (06/28/19 15:11) Ed Iv/Invasive Line Start (06/28/19 15:11) Troponin I (06/28/19 15:11) Aspirin Chewable Tablet (Baby Aspirin Ch (06/28/19 15:15) Medications Given in ED Current Medications Medications Dose Ordered Sig/Vipin Route Start Time Stop Time Status Last Admin Dose Admin Aspirin 324 mg ONCE ONCE PO 06/28/19 15:15 06/28/19 15:16 DC 06/28/19 15:18 324 MG Vital Signs/I&O 06/28/19 06/28/19 06/28/19 15:03 15:10 16:17 Temp 37.0 37.0 Pulse 98 86 Resp 20 20 B/P (MAP) 133/81 (98) 121/80 (98) Pulse Ox 100 100 O2 Delivery Room Air Room Air Room Air Blood Pressure Mean: 98 Progress Progress Note : Time: 15:07 Progress Note Patient seen and evaluated, will obtain EKG, Chest x-ray and labs. ASA 324 mg po 1545 chest x-ray and EKG show no abnormalities. Patient continues to deny chest pain. 1600 Labs WNL. Discharge instructions and return precautions reviewed with patient. All questions answered. Initial ECG Impression Date: Jun 28, 2019 Initial ECG Impression Time: 15:11 Initial ECG Rate: 93 Initial ECG Rhythm: Normal Sinus Initial ECG Intervals: Normal Initial ECG Intervals NM 152, QRSD 86, QT 352, QTC 438. [place] P 47, QRS 30, T 25 Initial ECG Impression: Normal Initial ECG Comparisson: Unchanged Diagnostic Imaging Diagonstic Imaging: Xray Plain Films/CT/US/NM/MRI: chest Comments NAME: ANG[facility]IT[facility] REC#: [id number] PT STATUS: REG ER : 1975 PHYSICIAN: NIMESH HOWE ADMIT DATE: 06/28/19/ER Draft Date of Exam:06/28/19 CHEST 1 VIEW, AP/PA ONLY PATIENT HISTORY: Chest pain. TECHNIQUE: Single frontal view of the chest. COMPARISON: 12/09/2017 FINDINGS: The lung volumes are normal. No focal consolidation is seen. No large pleural effusion or pneumothorax is seen. The cardiomediastinal silhouette is normal in size and contour. No acute osseous abnormality is seen. IMPRESSION: No acute pulmonary abnormality seen. Dictated on workstation # [id number] Dict: 06/28/19 1530 Trans: 06/28/19 1540 CV [id number] Interpreted by: JIMI REYES MD Electronically signed by: Reviewed: Reviewed by Me Departure Impression Primary Impression: Costochondral chest pain Disposition: HOME, SELF-CARE Condition: Improved Departure-Patient Inst. Decision time for Depature: 16:00 Referrals: [facility] [place] (PCP/Family) Primary Care Physician Patient Instructions: Chest Pain That Is Not Caused by the Heart (DC), Costochondritis (DC) Add. Discharge Instructions: Use warm moist compression on area of tenderness to the recurs. Take aspirin 81 mg 1 daily. Follow-up with your primary care provider if symptoms are not improving or worsen. Return to the emergency for chest pain with associated nausea or vomiting and sw eating. All discharge instructions reviewed with patient and/or family. Voiced understanding. NIMESH HOWE Jun 28, 2019 15:59
[2019-06-28 16:17] VITALS: BP 121/80
== END 2019-06-28 16:16 | disposition home or self-care (01) ==
LOC: EDUNIT# 14:59 → ER 15:00
DX: R07.9 Chest pain, unspecified (principal)
CPT/HCPCS: 36415; 71045; 80053; 83735; 83874; 84484; 85025; 85610; 85730; 93041